=== PATIENT | male | born 1955 | race Hispanic/Latino ===

== ENCOUNTER 2018-11-28 16:10 | Emergency (ER) | payer BC ==
[2018-11-28 16:55] VITALS: BP 138/77; PULSE 70; RESP 16; TEMP 98.4; O2SAT 98
[2018-11-28] MEDS ORDERED: Povidone Iodine Oint 10% Foilpak UD TOP ONE (17:35)
[2018-11-28] MEDS ORDERED: Lidocaine 1% Inj (20ml) IJ STA (17:35)
[2018-11-28] MEDS ORDERED: Tdap Vaccine 0.5 ml Vial (10-64 yrs) IM ONE ×2 (17:35→18:05)
[2018-11-28] MEDS ORDERED: Lidocaine Hydrochloride 1% 10 ML ONE (18:05)
[2018-11-28] MEDS ORDERED: Povidone Iodine Oint 10% Foilpak UD ONE (18:05)
--- NOTE | 2018-11-28 18:54 | ED PDOC ---
Upper Extremity Pain/Injury Time Seen by Provider: 11/28/18 17:13 Chief Complaint (Nursing): Finger,Hand,&Wrist Chief Complaint (Provider): finger laceration History Per: Patient History/Exam Limitations: no limitations Additional Complaint(s): 63 y/o M with hx of DM, HTN, HL who presents with finger laceration. Pt states that he was cutting a potate at about 3pm today when the knife slipped and he cut himself. He is not up to date on tetanus. Denies numbness or tingling. Has not taken anything for pain. Past Medical History Reviewed: Historical Data, Nursing Documentation, Vital Signs Vital Signs: Last Vital Signs Temp 98.4 F 11/28/18 16:53 Pulse 70 11/28/18 16:53 Resp 16 11/28/18 16:53 BP 138/77 11/28/18 16:53 Pulse Ox 98 11/28/18 16:53 Primary Care Provider: Charly Boykin - Medical History PMH: Diabetes, HTN, Hypercholesterolemia - Surgical History Other surgeries: knee surgery, toe amputation left foot, rectal fisutal repair. - Family History Family History: States: Unknown Family Hx - Home Medications Home Medications: Ambulatory Orders Medication Instructions Recorded Ibuprofen [Motrin Tab] 600 mg PO Q6 PRN 7 Days tab 11/28/18 - Allergies Allergies/Adverse Reactions: Allergies Allergy/AdvReac Type Severity Reaction Status Date / Time shellfish derived Allergy RASH Verified 11/28/18 16:53 Review of Systems Musculoskeletal: Positive for: Other (finger pain) Physical Exam - Reviewed Nursing Documentation Reviewed: Yes Vital Signs Reviewed: Yes - Physical Exam Appears: Positive for: Non-toxic Extremity: Positive for: Normal ROM (flexion and extension of DIP and PIP), Capillary Refill (< 2 sec), Other (2cm laceration on medial aspect of Left distal 2nd digit between DIP and PIP. ). Negative for: Swelling Neurological/Psych: Positive for: Awake, Alert, Oriented - ECG O2 Sat by Pulse Oximetry: 98 Medical Decision Making Medical Decision Making: Tetanus vaccine Ibuprofen 600mg PO x 1 Laceration repair Procedures - Laceration/Wound Repair Left Finger Wound Length (cm): 2 Wound's Depth, Shape: superficial, linear Wound Explored: clean Irrigated w/ Saline (ccs): 200 Betadine Prep?: Yes Anesthesia: 1% Lidocaine Volume Anesthetic (ccs): 2 Wound Repaired With: Sutures Suture Size/Type: 4:0, proline Number of Sutures: 3 Layer Closure?: No Wound Complexity: Simple Splint Applied?: Yes Disposition - Clinical Impression Clinical Impression: Finger laceration - Patient ED Disposition Is Patient to be Admitted: No Counseled Patient/Family Regarding: Diagnosis, Need For Followup, Rx Given - Disposition Disposition: Routine/Home Disposition Time: 18:56 Condition: STABLE Additional Instructions: You have [address] that will need to be removed in 7 - 10 days. Keep dressing clean and dry for the next 24hrs and then remove dressing, wash with soap and water and leave open to the air. Take Tylenol or Ibuprofen for pain. Return to ER if you develop redness, pus drainage or fevers. Prescriptions: Ibuprofen [Motrin Tab] 600 mg PO Q6 PRN 7 Days tab PRN Reason: Pain, Moderate (4-7) Instructions: Laceration Repair With Stitches (DC) Forms: GPNX (Hebrew) Print Language: SYRIAC
== END 2018-11-28 19:28 | disposition home or self-care (01) ==
LOC: H.ER 16:10
DX: S61.211A Laceration without foreign body of left index finger without damage to nail, initial encounter (principal); W26.0XXA Contact with knife, initial encounter; Y92.89 Other specified places as the place of occurrence of the external cause; E11.9 Type 2 diabetes mellitus without complications; E78.00 Pure hypercholesterolemia, unspecified; I10 Essential (primary) hypertension; Z89.422 Acquired absence of other left toe(s)